=== PATIENT | male | born 1940 | race Asian ===

== ENCOUNTER 2021-04-19 16:35 | Inpatient (IN) | payer MEDICAID ==
--- NOTE | 2021-04-19 17:18 | ERPHSYRPT ---
- History of Present Illness Time Seen by Provider: 04/19/21 16:45 Source: patient Exam Limitations: no limitations Patient Subjective Stated Complaint: HERE FOR HIGH BLOOD SUGAR, HE IS TRAVELING AND FORGOT HES INSULIN, HE STATES HE DOES NOT FELL WELL BUT IS A POOR HISTORIAN Triage Nursing Assessment: PT ALERT, RESP LABORED AT REST, FACE MASK IN PLACE, ABD SOFT, NO EDEMA Physician History: Patient is a 81-year-old male presents to our emergency department via EMS for evaluation of feeling unwell. Patient is a diabetic. Patient is traveling to [place]. Patient states he forgot to take his insulin this morning. Patient states that he drove to [place] for a meal. Patient later began to feel unwell. EMS was notified. Patient was found to have hyperglycemia. No associated chest pain. No nausea or vomiting. No diarrhea. No rash. Symptoms are mild to moderate in intensity. No specific worsening or improving factors. Patient voices no other complaints concerns at this time. Timing/Duration: today Severity: mild Modifying Factors: Improves With: nothing Associated Symptoms: denies symptoms Allergies/Adverse Reactions: No Known Drug Allergies Allergy (Unverified 04/19/21 16:44) Home Medications: Unobtainable 04/19/21 [History] Hx Tetanus, Diphtheria Vaccination/Date Given: No Hx Influenza Vaccination/Date Given: No Hx Pneumococcal Vaccination/Date Given: No Immunizations Up to Date: (UNSURE) Travel Risk - International Travel Have you traveled outside of the country in past 3 weeks: No - Coronavirus Screening Are you exhibiting any of the following symptoms?: No Close contact with a COVID-19 positive Pt in past 14-21 Days: No - Vaccine Status Have you recieved a Covid-19 vaccination: Yes Customer Relations Advisor: [employer] - Vaccination Dates Date of 2cond Vaccination (if applicable): JANUARY - Review of Systems Constitutional: No Symptoms, No Fever, No Chills Eyes: No Symptoms Ears, Nose, & Throat: No Symptoms Respiratory: No Symptoms, No Cough, No Dyspnea Cardiac: No Symptoms, No Chest Pain, No Edema, No Syncope Abdominal/Gastrointestinal: No Symptoms, No Abdominal Pain, No Nausea, No Vomiting, No Diarrhea Genitourinary Symptoms: No Symptoms, No Dysuria Musculoskeletal: No Symptoms, No Back Pain, No Neck Pain Skin: No Symptoms, No Rash Neurological: No Symptoms, No Dizziness, No Focal Weakness, No Sensory Changes Psychological: No Symptoms Endocrine: No Symptoms Hematologic/Lymphatic: No Symptoms Immunological/Allergic: No Symptoms All Other Systems: Reviewed and Negative - Past Medical History Pertinent Past Medical History: Yes Cardiac History: Hypertension Endocrine Medical History: Diabetes Type II - Past Surgical History Past Surgical History: No - Social History Smoking Status: Never smoker Exposure to second hand smoke: No Drug Use: none Patient Lives Alone: Yes - Nursing Vital Signs Nursing Vital Signs: Initial Vital Signs O2 Sat by Pulse Oximetry 98 04/19/21 16:36 Pain Scale Pain Intensity 0 - Physical Exam General Appearance: no apparent distress, alert Eye Exam: PERRL/EOMI, eyes nml inspection Ears, Nose, Throat Exam: normal ENT inspection, TMs normal, pharynx normal, moist mucous membranes Neck Exam: normal inspection, non-tender, supple, full range of motion Respiratory Exam: normal breath sounds, lungs clear, No respiratory distress Cardiovascular Exam: regular rate/rhythm, normal heart sounds, normal peripheral pulses Gastrointestinal/Abdomen Exam: soft, normal bowel sounds, No tenderness, No mass Back Exam: normal inspection, normal range of motion, No CVA tenderness, No vertebral tenderness Extremity Exam: normal inspection, normal range of motion, pelvis stable Neurologic Exam: alert, oriented x 3, cooperative, normal mood/affect, sensation nml, No motor deficits Skin Exam: normal color, warm, dry, No rash Lymphatic Exam: No adenopathy SpO2 Interpretation: normal SpO2: 98 O2 Delivery: Room Air - Course Nursing assessment & vital signs reviewed: Yes EKG Interpreted by Me: RATE (122), Sinus Rhythm, Sinus Tach, NORMAL AXIS, NORMAL INTERVALS - Radiology Exams Chest X-ray Interpretation: Interpreted by me (Left lower lobe consolidation. Cardiomegaly. Intact bony thorax.) - CT Exams Chest CT Interpretation: Tele-radiologist Report (PE evaluation limited by respiration artifact. No obvious central PE. Diffuse bilateral airspace disease. Small hiatal hernia. Cardiomegaly. Multiple hepatic hypodense lesions worrisome for metastasis. 3.5 cm gallstone.) Ordered Tests: Active Orders 24 hr Category Date Time Status Bedrest ROUTINE Activity 04/20/21 01:17 Active Family Services Specialist ROUTINE Care 04/20/21 01:17 Active Family Services Specialist STAT Care 04/19/21 17:12 Completed EKG-ER Only STAT Care 04/19/21 17:11 Completed IV Insertion STAT Care 04/19/21 17:11 Completed Isolation, Initiate & Maintain Q6H Care 04/20/21 01:17 Active Neuro Checks Q4H Care 04/20/21 01:[address] in Observation ROUTINE Care 04/20/21 01:17 Active Pulse Oximetry (ED) STAT Care 04/19/21 17:11 Completed Telemetry q4h Care 04/20/21 01:17 Active Vital Signs Q1H Care 04/20/21 01:17 Active CHEST 1 VIEW (PORTABLE) Stat Exams 04/19/21 17:12 Taken CHEST WITH CONTRAST [CT] Stat Exams 04/19/21 18:40 Taken ABG [ARTERIAL BLOOD GASES] Stat Lab 04/19/21 22:30 Completed BLOOD CULTURE Stat Lab 04/19/21 18:40 Ordered BMP Stat Lab 04/19/21 23:18 Completed CBC W DIFF AM.LAB Lab 04/20/21 04:00 Ordered CBC W DIFF Stat Lab 04/19/21 17:11 Completed CMP AM.LAB Lab 04/20/21 04:00 Ordered CMP Stat Lab 04/19/21 17:11 Completed CULTURE,URINE Stat Lab 04/19/21 19:38 Received INFLUENZA A+B MARGIE Stat Lab 04/19/21 19:30 Completed Manual Differential NC Stat Lab 04/19/21 17:11 Completed POCT GLUCOSE Stat Lab 04/19/21 23:14 Completed TROPONIN Q3H Lab 04/19/21 17:11 Completed TROPONIN Q3H Lab 04/19/21 20:15 Completed TROPONIN Q3H Lab 04/19/21 23:15 Completed TROPONIN Q3H Lab 04/20/21 02:15 Ordered TROPONIN Q3H Lab 04/20/21 05:15 Ordered UA W/RFX UR CULTURE Stat Lab 04/19/21 19:38 Completed Respiratory Therapy Consult ROUTINE RT 04/20/21 01:17 Completed Medication Summary Generic Name Dose Route Start Last Admin Trade Name Freq PRN Reason Stop Dose Admin Albuterol Sulfate 4 puff 04/20/21 01:17 Ventolin Common Canister IH 05/20/21 01:16 Q4H PRN PRN SHORTNESS OF BREATH/WHEEZING Potassium Chloride 20 meq in 100 mls @ 50 mls/hr 04/19/21 19:00 04/19/21 22:12 Potassium Chloride 20 Meq In Water 100ml IV 04/19/21 22:59 50 mls/hr Q2H RICHIE Administration Insulin Human Regular 100 unit 100 mls @ 6.4 mls/hr 04/19/21 18:51 04/19/21 20:04 / Sodium Chloride IV 05/19/21 18:50 0.1 unit/kg/hr .[id number] PRN 6.4 mls/hr DKA/HYPERGLYCEMIA Administration Protocol 0.1 UNIT/KG/HR Sodium Chloride 1,000 mls @ 0 mls/hr 04/20/21 01:17 04/20/21 02:51 Sodium Chloride 0.9% 1000 Ml IV 05/20/21 01:16 250 mls/hr .Q0M RICHIE Administration KVO Sodium Chloride 1,000 mls @ 250 mls/hr 04/20/21 02:00 04/20/21 03:04 Sodium Chloride 0.9% 1000 Ml IV 05/20/21 01:59 Not Given .Q4H RICHIE Sodium Chloride 1,000 mls @ 150 mls/hr 04/20/21 04:00 Sodium Chloride 0.9% 1000 Ml IV 05/20/21 03:59 .[id number] RICHIE Morphine Sulfate 4 mg 04/20/21 01:17 Morphine Sulfate 4 Mg Inj IV 04/25/21 01:16 Q4H PRN PRN PAIN Ondansetron HCl 4 mg 04/20/21 01:17 Zofran 4 Mg/2 Ml Vial IV 05/20/21 01:16 Q6H PRN PRN NAUSEA/VOMITING Discontinued Medications Generic Name Dose Route Start Last Admin Trade Name Freq PRN Reason Stop Dose Admin Aspirin 324 mg 04/19/21 18:36 04/19/21 18:42 Baby Aspirin 81 Mg Chew PO 04/19/21 18:37 324 mg STAT ONE Administration Aspirin Confirm 04/19/21 18:40 Baby Aspirin 81 Mg Chew Administered 04/19/21 18:41 Dose 324 mg .ROUTE .STK-MED ONE Dexamethasone Sodium Phosphate 6 mg 04/19/21 21:59 04/19/21 23:52 Decadron 10mg Inj. IV 04/19/21 22:00 6 mg STAT ONE Administration Dexamethasone Sodium Phosphate Confirm 04/19/21 23:50 Decadron 10mg Inj. Administered 04/19/21 23:51 Dose 10 mg .ROUTE .STK-MED ONE Vancomycin HCl 2 gm in 400 mls @ 133.333 mls/hr 04/19/21 18:41 04/20/21 01:11 Vancomycin 2 Gram/400 Ml Bag IV 04/19/21 21:40 Infused STAT ONE Infusion Piperacillin Sod/Tazobactam 100 mls @ 200 mls/hr 04/19/21 18:41 04/19/21 18:46 Sod 3.375 gm/ Sodium Chloride IV 04/19/21 19:10 200 mls/hr STAT ONE Administration Sodium Chloride Confirm 04/19/21 18:45 Sodium Chloride 100ml Mini-Bag Plus Administered 04/19/21 18:46 Dose 100 mls @ ud IV .STK-MED ONE Vancomycin HCl Confirm 04/19/21 18:53 Vancomycin 2 Gram/400 Ml Bag Administered 04/19/21 18:54 Dose 2 gm in 400 mls @ ud IV .STK-MED ONE Sodium Chloride Confirm 04/19/21 20:00 Sodium Chloride 0.9% 100 Ml Bag Administered 04/19/21 20:01 Dose 100 mls @ ud .ROUTE .STK-MED ONE Insulin Human Regular Confirm 04/19/21 19:59 Humulin R Administered 04/19/21 20:00 Dose 1 unit .ROUTE .STK-MED ONE Nitroglycerin 1 gm 04/19/21 18:36 04/19/21 18:43 Nitro-Bid 2% Ud Packets TOP 04/19/21 18:37 1 gm STAT ONE Administration Nitroglycerin Confirm 04/19/21 18:41 Nitro-Bid 2% Ud Packets Administered 04/19/21 18:42 Dose 1 gm .ROUTE .STK-MED ONE Piperacillin Sod/Tazobactam Sod Confirm 04/19/21 18:44 Zosyn 3.375 Gm Vial Administered 04/19/21 18:45 Dose 3.375 gm IV .STK-MED ONE Lab/Rad Data: Laboratory Result Diagrams 04/19/21 17:11 04/20/21 00:15 Laboratory Results 04/20/21 04/20/21 04/19/21 Range/Units 01:08 00:15 23:15 WBC (4.0-10.5) K/mm3 RBC (4.1-5.6) M/mm3 Hgb (12.5-18.0) gm/dl Hct (42-50) % MCV (78-100) fl MCH (26-32) pg MCHC (32-36) g/dl RDW (11.5-14.0) % Plt Count (150-450) K/mm3 MPV (7.5-11.0) fl Segmented Neutrophils (36.-66.) % Band Neutrophils (0.0-2.0) % Lymphocytes (Manual) (24-44) % Monocytes (Manual) (0.0-12.0) % Platelet Estimate (NORMAL) RBC Morphology Poikilocytosis Anisocytosis Puncture Site pCO2 (35-45) mmHg pO2 (75-100) mmHg Base Excess (-2.0-2.0) O2 Saturation (94-100) g/dF ABG pH (7.35-7.45) ABG HCO3 (22-28) ABG O2 Sat (Measured) (95-100) % Wilfrido Test A-a Gradient a/A Ratio Hemoglobin Carboxyhemoglobin (0.0-6.9) % THgb Methemoglobin (1.4-1.5) % Temperature C POC O2 Flow Rate % Sodium 135 L (137-145) mmol/L Potassium 3.9 (3.5-5.1) mmol/L Chloride 106 (98-107) mmol/L Carbon Dioxide 20 L (22-30) mmol/L Anion Gap 12.6 (5-15) MEQ/L BUN 25 H (9-20) mg/dL Creatinine 0.87 (0.66-1.25) mg/dL Estimated GFR > 60.0 ML/MIN Glucose 474 H (74-106) mg/dL POC Glucometer 380 H (74 to 106) mg/dL Calcium 8.9 (8.4-10.2) mg/dL Total Bilirubin (0.2-1.3) mg/dL AST (17-59) U/L ALT (0-50) U/L Alkaline Phosphatase (38-126) U/L Troponin I 0.065 H* (0.000-0.034) ng/mL Serum Total Protein (6.3-8.2) g/dL Albumin (3.5-5.0) g/dL Urine Color (YELLOW) Urine Appearance (CLEAR) Urine pH (5-6) Ur Specific [place] (1.005-1.025) Urine Protein (Negative) Urine Ketones (NEGATIVE) Urine Blood (0-5) Nguyễn/ul Urine Nitrite (NEGATIVE) Urine Bilirubin (NEGATIVE) Urine Urobilinogen (0-1) mg/dL Ur Leukocyte Esterase (NEGATIVE) Urine WBC (Auto) (0-5) /HPF Urine RBC (Auto) (0-2) /HPF U Epithel Cells (Auto) (FEW) /HPF Urine Bacteria (Auto) (NEGATIVE) /HPF Urine Mucus (Auto) (NEGATIVE) /HPF Urine Culture Reflexed (NO) Urine Glucose (NEGATIVE) mg/dL Influenza Type A Ag (NEGATIVE) Influenza Type B Ag (NEGATIVE) SARS-CoV-2 (PCR) (NEGATIVE) 04/19/21 04/19/21 04/19/21 Range/Units 23:14 22:30 20:30 WBC (4.0-10.5) K/mm3 RBC (4.1-5.6) M/mm3 Hgb (12.5-18.0) gm/dl Hct (42-50) % MCV (78-100) fl MCH (26-32) pg MCHC (32-36) g/dl RDW (11.5-14.0) % Plt Count (150-450) K/mm3 MPV (7.5-11.0) fl Segmented Neutrophils (36.-66.) % Band Neutrophils (0.0-2.0) % Lymphocytes (Manual) (24-44) % Monocytes (Manual) (0.0-12.0) % Platelet Estimate (NORMAL) RBC Morphology Poikilocytosis Anisocytosis Puncture Site RIGHT RADIAL pCO2 27 L (35-45) mmHg pO2 55 L (75-100) mmHg Base Excess -4.4 L (-2.0-2.0) O2 Saturation 87.5 L (94-100) g/dF ABG pH 7.44 (7.35-7.45) ABG HCO3 18.3 L (22-28) ABG O2 Sat (Measured) 89.2 L (95-100) % Wilfrido Test YES A-a Gradient 225 a/A Ratio 0.20 Hemoglobin 16.1 Carboxyhemoglobin 1.4 (0.0-6.9) % THgb Methemoglobin 0.5 L (1.4-1.5) % Temperature 37.0 C POC O2 Flow Rate 21 % Sodium (137-145) mmol/L Potassium 4.0 (3.5-5.1) mmol/L Chloride (98-107) mmol/L Carbon Dioxide (22-30) mmol/L Anion Gap (5-15) MEQ/L BUN (9-20) mg/dL Creatinine (0.66-1.25) mg/dL Estimated GFR ML/MIN Glucose (74-106) mg/dL POC Glucometer 490 H (74 to 106) mg/dL Calcium (8.4-10.2) mg/dL Total Bilirubin (0.2-1.3) mg/dL AST (17-59) U/L ALT (0-50) U/L Alkaline Phosphatase (38-126) U/L Troponin I (0.000-0.034) ng/mL Serum Total Protein (6.3-8.2) g/dL Albumin (3.5-5.0) g/dL Urine Color (YELLOW) Urine Appearance (CLEAR) Urine pH (5-6) Ur Specific [place] (1.005-1.025) Urine Protein (Negative) Urine Ketones (NEGATIVE) Urine Blood (0-5) Nguyễn/ul Urine Nitrite (NEGATIVE) Urine Bilirubin (NEGATIVE) Urine Urobilinogen (0-1) mg/dL Ur Leukocyte Esterase (NEGATIVE) Urine WBC (Auto) (0-5) /HPF Urine RBC (Auto) (0-2) /HPF U Epithel Cells (Auto) (FEW) /HPF Urine Bacteria (Auto) (NEGATIVE) /HPF Urine Mucus (Auto) (NEGATIVE) /HPF Urine Culture Reflexed (NO) Urine Glucose (NEGATIVE) mg/dL Influenza Type A Ag (NEGATIVE) Influenza Type B Ag (NEGATIVE) SARS-CoV-2 (PCR) POSITIVE A (NEGATIVE) 04/19/21 04/19/21 04/19/21 Range/Units 20:15 19:38 19:30 WBC (4.0-10.5) K/mm3 RBC (4.1-5.6) M/mm3 Hgb (12.5-18.0) gm/dl Hct (42-50) % MCV (78-100) fl MCH (26-32) pg MCHC (32-36) g/dl RDW (11.5-14.0) % Plt Count (150-450) K/mm3 MPV (7.5-11.0) fl Segmented Neutrophils (36.-66.) % Band Neutrophils (0.0-2.0) % Lymphocytes (Manual) (24-44) % Monocytes (Manual) (0.0-12.0) % Platelet Estimate (NORMAL) RBC Morphology Poikilocytosis Anisocytosis Puncture Site pCO2 (35-45) mmHg pO2 (75-100) mmHg Base Excess (-2.0-2.0) O2 Saturation (94-100) g/dF ABG pH (7.35-7.45) ABG HCO3 (22-28) ABG O2 Sat (Measured) (95-100) % Wilfrido Test A-a Gradient a/A Ratio Hemoglobin Carboxyhemoglobin (0.0-6.9) % THgb Methemoglobin (1.4-1.5) % Temperature C POC O2 Flow Rate % Sodium (137-145) mmol/L Potassium (3.5-5.1) mmol/L Chloride (98-107) mmol/L Carbon Dioxide (22-30) mmol/L Anion Gap (5-15) MEQ/L BUN (9-20) mg/dL Creatinine (0.66-1.25) mg/dL Estimated GFR ML/MIN Glucose (74-106) mg/dL POC Glucometer (74 to 106) mg/dL Calcium (8.4-10.2) mg/dL Total Bilirubin (0.2-1.3) mg/dL AST (17-59) U/L ALT (0-50) U/L Alkaline Phosphatase (38-126) U/L Troponin I 0.066 H* (0.000-0.034) ng/mL Serum Total Protein (6.3-8.2) g/dL Albumin (3.5-5.0) g/dL Urine Color YELLOW (YELLOW) Urine Appearance CLEAR (CLEAR) Urine pH 6.0 (5-6) Ur Specific [place] 1.026 (1.005-1.025) Urine Protein 30 (Negative) Urine Ketones SMALL (NEGATIVE) Urine Blood SMALL (0-5) Nguyễn/ul Urine Nitrite NEGATIVE (NEGATIVE) Urine Bilirubin NEGATIVE (NEGATIVE) Urine Urobilinogen NEGATIVE (0-1) mg/dL Ur Leukocyte Esterase NEGATIVE (NEGATIVE) Urine WBC (Auto) NONE (0-5) /HPF Urine RBC (Auto) NONE (0-2) /HPF U Epithel Cells (Auto) NONE (FEW) /HPF Urine Bacteria (Auto) NONE (NEGATIVE) /HPF Urine Mucus (Auto) SLIGHT (NEGATIVE) /HPF Urine Culture Reflexed YES (NO) Urine Glucose >=500 (NEGATIVE) mg/dL Influenza Type A Ag NEGATIVE (NEGATIVE) Influenza Type B Ag NEGATIVE (NEGATIVE) SARS-CoV-2 (PCR) (NEGATIVE) 04/19/21 04/19/21 04/19/21 Range/Units 17:11 17:11 17:11 WBC 4.4 (4.0-10.5) K/mm3 RBC 3.68 L (4.1-5.6) M/mm3 Hgb 12.9 (12.5-18.0) gm/dl Hct 38.5 L (42-50) % MCV 104.6 H (78-100) fl MCH 35.1 H (26-32) pg MCHC 33.5 (32-36) g/dl RDW 13.7 (11.5-14.0) % Plt Count 91 L (150-450) K/mm3 MPV 12.1 H (7.5-11.0) fl Segmented Neutrophils 76 H (36.-66.) % Band Neutrophils 3 H (0.0-2.0) % Lymphocytes (Manual) 19 L (24-44) % Monocytes (Manual) 2 (0.0-12.0) % Platelet Estimate NORMAL (NORMAL) RBC Morphology ABNORMAL Poikilocytosis 1+ Anisocytosis 1+ Puncture Site pCO2 (35-45) mmHg pO2 (75-100) mmHg Base Excess (-2.0-2.0) O2 Saturation (94-100) g/dF ABG pH (7.35-7.45) ABG HCO3 (22-28) ABG O2 Sat (Measured) (95-100) % Wilfrido Test A-a Gradient a/A Ratio Hemoglobin Carboxyhemoglobin (0.0-6.9) % THgb Methemoglobin (1.4-1.5) % Temperature C POC O2 Flow Rate % Sodium 130 L (137-145) mmol/L Potassium 3.8 (3.5-5.1) mmol/L Chloride 95 L (98-107) mmol/L Carbon Dioxide 13 L* (22-30) mmol/L Anion Gap 24.9 H (5-15) MEQ/L BUN 25 H (9-20) mg/dL Creatinine 1.06 (0.66-1.25) mg/dL Estimated GFR > 60.0 ML/MIN Glucose 679 H* (74-106) mg/dL POC Glucometer (74 to 106) mg/dL Calcium 9.2 (8.4-10.2) mg/dL Total Bilirubin 1.80 H (0.2-1.3) mg/dL AST 108 H (17-59) U/L ALT 50 (0-50) U/L Alkaline Phosphatase 201 H (38-126) U/L Troponin I 0.054 H* (0.000-0.034) ng/mL Serum Total Protein 7.3 (6.3-8.2) g/dL Albumin 3.7 (3.5-5.0) g/dL Urine Color (YELLOW) Urine Appearance (CLEAR) Urine pH (5-6) Ur Specific [place] (1.005-1.025) Urine Protein (Negative) Urine Ketones (NEGATIVE) Urine Blood (0-5) Nguyễn/ul Urine Nitrite (NEGATIVE) Urine Bilirubin (NEGATIVE) Urine Urobilinogen (0-1) mg/dL Ur Leukocyte Esterase (NEGATIVE) Urine WBC (Auto) (0-5) /HPF Urine RBC (Auto) (0-2) /HPF U Epithel Cells (Auto) (FEW) /HPF Urine Bacteria (Auto) (NEGATIVE) /HPF Urine Mucus (Auto) (NEGATIVE) /HPF Urine Culture Reflexed (NO) Urine Glucose (NEGATIVE) mg/dL Influenza Type A Ag (NEGATIVE) Influenza Type B Ag (NEGATIVE) SARS-CoV-2 (PCR) (NEGATIVE) - Progress Progress: improved Progress Note: Patient reassessed. DKA improving. Patient Covid positive. CAT scan incidentally identifies possible metastasis. This will require further investigation as an as an inpatient and outpatient. Pneumonia observed on x- ray. Antibiotics infused. Patient admitted to Dr. Munson. Patient will require admission for further evaluation and treatment. Plan of care discussed with patient. He agrees to admission at [facility] for further evaluation and treatment. Portions of this note were created with voice recognition technology. There may be grammatical, spelling, punctuation or sound alike errors 04/20/21 03:52 Counseled pt/family regarding: lab results, diagnosis, rad results - Departure Departure Disposition: Observation Clinical Impression: Elevated troponin, Thrombocytopenia, Hyponatremia, Metabolic acidosis, DKA (diabetic ketoacidosis), Sepsis, Leukopenia, Gallstones, Metastatic cancer, COVID-19, Pneumonia Condition: Stable Critical Care Time: No
[2021-04-19 17:24] LABS: Hematocrit 38.5 % (42-50); Hemoglobin 12.9 gm/dl (12.5-18.0); Mean Cell Volume 104.6 fl (78-100); Mean Corpuscular Hemoglobin 35.1 pg (26-32); Mean Corpuscular Hgb Concent. 33.5 g/dl (32-36); Mean Platelet Volume 12.1 fl (7.5-11.0); Platelet Count 91 K/mm3 (150-450); Red Blood Count 3.68 M/mm3 (4.1-5.6); Red Cell Distribution Width 13.7 % (11.5-14.0); White Blood Count 4.4 K/mm3 (4.0-10.5)
[2021-04-19 17:28] LABS: ALBUMIN 3.7 g/dL (3.5-5.0); ALKALINE PHOSPHATASE 201 U/L (38-126); ANION GAP 24.9 MEQ/L (5-15); BLOOD UREA NITROGEN 25 mg/dL (9-20); CHLORIDE 95 mmol/L (98-107); Calcium 9.2 mg/dL (8.4-10.2); Creatinine 1 1.06 mg/dL (0.66-1.25); EST GLOMERULAR FILTRATION RATE > 60.0 ML/MIN; Potassium 3.8 mmol/L (3.5-5.1); SGOT/AST 108 U/L (17-59); SODIUM 130 mmol/L (137-145); Total Protein 7.3 g/dL (6.3-8.2)
[2021-04-19 17:34] LABS: SGPT/ALT 50 U/L (0-50)
[2021-04-19 17:43] LABS: Carbon Dioxide 13 mmol/L (22-30); Glucose 679 mg/dL (74-106)
[2021-04-19] MEDS ORDERED: BABY ASPIRIN 81 MG CHEW PO ONE (18:36)
[2021-04-19] MEDS ORDERED: NITRO-BID 2% UD PACKETS TOP ONE (18:36)
[2021-04-19] MEDS ORDERED: BABY ASPIRIN 81 MG CHEW ONE (18:40)
[2021-04-19] MEDS ORDERED: Zosyn 3.375 GM Vial 3.375 GM in Sodium Chloride 100ML MINI-BAG PLUS 100 ML IV ONE (18:41)
[2021-04-19] MEDS ORDERED: NITRO-BID 2% UD PACKETS ONE (18:41)
[2021-04-19] MEDS ORDERED: VANCOMYCIN 2 GRAM/400 ML BAG 2 GM/400 ML PIGGYBACK IV ONE ×2 (18:41→18:53)
[2021-04-19] MEDS ORDERED: Zosyn 3.375 GM Vial IV ONE (18:44)
[2021-04-19] MEDS ORDERED: Sodium Chloride 100ML MINI-BAG PLUS 100 ML IV ONE (18:45)
[2021-04-19] MEDS ORDERED: HUMULIN R 100 UNIT in Sodium Chloride 0.9% 100 ML BAG 100 ML IV PRN (18:51)
[2021-04-19 19:53] LABS: Appearance CLEAR (CLEAR); Bilirubin NEGATIVE (NEGATIVE); Blood SMALL Ery/ul (0-5); Glucose >=500 mg/dL (NEGATIVE); Ketones SMALL (NEGATIVE); Leukocyte Esterase NEGATIVE (NEGATIVE); Mucus SLIGHT /HPF (NEGATIVE); Nitrite NEGATIVE (NEGATIVE); Protein,Urine Dip 30 (Negative); Specific Gravity 1.026 (1.005-1.025); Urobilinogen NEGATIVE mg/dL (0-1)
[2021-04-19] MEDS ORDERED: HUMULIN R ONE (19:59)
[2021-04-19] MEDS ORDERED: Sodium Chloride 0.9% 100 ML BAG 100 ML ONE (20:00)
[2021-04-19] MEDS: POTASSIUM CHLORIDE 20 mEq IN WATER 100ML 20 MEQ/100 ML BAG IV SCH ×2 (20:13→22:12)
[2021-04-19 20:41] LABS: INFLUENZA A NEGATIVE (NEGATIVE); INFLUENZA B NEGATIVE (NEGATIVE)
[2021-04-19 21:32] LABS: BAND 3 % (0.0-2.0); Lymphocytes 19 % (24-44); Monocyte 2 % (0.0-12.0); Neutrophils 76 % (36.-66.); Total Cells Counted 100
[2021-04-19 21:33] LABS: ANISOCYTOSIS 1+; Platelet Estimate NORMAL (NORMAL); Poikilocytosis 1+
[2021-04-19] MEDS ORDERED: DECADRON 10MG INJ. IV ONE (21:59)
[2021-04-19 22:33] LABS: A-aADO2 225; ABG HEMOGLOBIN 16.1; ABG SITE RIGHT RADIAL; ALLEN TEST OK? YES; ARTERIAL BLD GAS O2 SATURATION 89.2 % (95-100); ARTERIAL BLOOD GAS BASE EXCESS -4.4 (-2.0-2.0); ARTERIAL BLOOD GAS PCO2 27 mmHg (35-45); ARTERIAL BLOOD GAS PO2 55 mmHg (75-100); ARTERIAL BLOOD GAS pH 7.44 (7.35-7.45); CARBOXYHEMOGLOBIN 1.4 % THgb (0.0-6.9); HCO3- 18.3 (22-28); HGB O2 SAT 87.5 g/dF (94-100); Methhemoglobin 0.5 % (1.4-1.5)
[2021-04-19 22:37] LABS: ARTERIAL BLOOD GAS FIO2 21 %
[2021-04-19] MEDS ORDERED: DECADRON 10MG INJ. ONE (23:50)
[2021-04-20 00:29] LABS: ANION GAP 12.6 MEQ/L (5-15); BLOOD UREA NITROGEN 25 mg/dL (9-20); CHLORIDE 106 mmol/L (98-107); Calcium 8.9 mg/dL (8.4-10.2); Carbon Dioxide 20 mmol/L (22-30); Creatinine 1 0.87 mg/dL (0.66-1.25); EST GLOMERULAR FILTRATION RATE > 60.0 ML/MIN; Glucose 474 mg/dL (74-106); Potassium 3.9 mmol/L (3.5-5.1); SODIUM 135 mmol/L (137-145)
[2021-04-20] MEDS ORDERED: Sodium Chloride 0.9% 1000 ML 1,000 ML IV SCH (01:17)
[2021-04-20] MEDS ORDERED: Zofran 4 MG/2 ML VIAL IV PRN (01:17)
[2021-04-20] MEDS ORDERED: MORPHINE SULFATE 4 MG INJ IV PRN (01:17)
[2021-04-20] MEDS ORDERED: VENTOLIN COMMON CANISTER IH PRN (01:17)
[2021-04-20] MEDS: Sodium Chloride 0.9% 1000 ML 1,000 ML IV SCH ×4 (03:04→11:10)
[2021-04-20 03:42] LABS: ALBUMIN 3.4 g/dL (3.5-5.0); ALKALINE PHOSPHATASE 220 U/L (38-126); ANION GAP 11.8 MEQ/L (5-15); BLOOD UREA NITROGEN 24 mg/dL (9-20); CHLORIDE 109 mmol/L (98-107); Calcium 9.3 mg/dL (8.4-10.2); Carbon Dioxide 21 mmol/L (22-30); Creatinine 1 0.85 mg/dL (0.66-1.25); EST GLOMERULAR FILTRATION RATE > 60.0 ML/MIN; Glucose 287 mg/dL (74-106); Potassium 3.5 mmol/L (3.5-5.1); SGOT/AST 115 U/L (17-59); SGPT/ALT 53 U/L (0-50); SODIUM 138 mmol/L (137-145); Total Protein 7.1 g/dL (6.3-8.2)
[2021-04-20 03:49] LABS: Hematocrit 33.7 % (42-50); Hemoglobin 11.6 gm/dl (12.5-18.0); Mean Cell Volume 101.8 fl (78-100); Mean Corpuscular Hgb Concent. 34.4 g/dl (32-36); Mean Platelet Volume 11.9 fl (7.5-11.0); Platelet Count 98 K/mm3 (150-450); Red Blood Count 3.31 M/mm3 (4.1-5.6); Red Cell Distribution Width 13.4 % (11.5-14.0); White Blood Count 4.1 K/mm3 (4.0-10.5)
[2021-04-20 08:13] LABS: ANION GAP 10.2 MEQ/L (5-15); BLOOD UREA NITROGEN 23 mg/dL (9-20); CHLORIDE 113 mmol/L (98-107); Carbon Dioxide 22 mmol/L (22-30); EST GLOMERULAR FILTRATION RATE > 60.0 ML/MIN; Glucose 115 mg/dL (74-106); Potassium 3.5 mmol/L (3.5-5.1); SODIUM 142 mmol/L (137-145)
--- NOTE | 2021-04-20 08:49 | XRAY ---
Indication: Hypoxia, tachycardia, and short of breath. Multiple contiguous images obtained through the chest using 80 cc Isovue 370 contrast and PE protocol. Comparison: None There is good opacification of the pulmonary arteries. However diffuse respiration artifact limits evaluation for pulmonary embolus. No obvious central pulmonary embolus. Heart is enlarged with small pericardial effusion. Aorta mildly arteriosclerotic without aneurysm/dissection. Small right hilar calcified nodes. No pathologic mediastinal/hilar lymphadenopathy. Small hiatal hernia. Lungs demonstrates moderate diffuse bilateral peripheral airspace disease greatest in both lower lobes. No effusion or pneumothorax. Bony thorax demonstrates osteopenia and flowing osteophytes throughout the spine. Limited upper abdomen demonstrates multiple hepatic hypodense lesions worrisome for metastasis. Also 3.5 cm gallstone. Impression: 1. Pulmonary embolus evaluation limited by respiration artifact. No obvious central pulmonary embolus. 2. Diffuse bilateral airspace disease. Commonly reported imaging features of Covid 19 pneumonia are present. Other processes such as influenza pneumonia and organizing pneumonia, as can be seen with drug toxicity and connective tissue disease, and causes similar imaging pattern. 3. Multiple hepatic lesions worrisome for metastasis. 4. Incidental cardiomegaly with pericardial effusion, small hiatal hernia, and large gallstone.
--- NOTE | 2021-04-20 08:49 | XRAY ---
Indication: Near syncope. Comparison: None Portable chest demonstrates diffuse bilateral airspace disease greatest in both lower lobes without consolidation/large effusion. Heart borderline enlarged. Bony thorax intact with mild osteopenia and degenerative changes.
[2021-04-20] MEDS ORDERED: REMDESIVIR 200 MG in Sodium Chloride 0.9% 250 ML 250 ML IV ONE (10:00)
[2021-04-20] MEDS: LASIX 20 MG PO SCH (10:44)
[2021-04-20] MEDS: DECADRON 10MG INJ. IV SCH (10:44)
[2021-04-20] MEDS: ENOXAPARIN SODIUM SQ SCH (10:45)
[2021-04-20] MEDS: HUMALOG SQ PRN ×3 (12:04→21:52)
[2021-04-20 14:35] LABS: Lymphocytes 14 % (24-44); Monocyte 1 % (0.0-12.0); Neutrophils 85 % (36.-66.); Platelet Estimate DECREASED (NORMAL); Total Cells Counted 100
[2021-04-21 06:37] LABS: Hematocrit 32.9 % (42-50); Hemoglobin 11.2 gm/dl (12.5-18.0); Mean Cell Volume 103.1 fl (78-100); Mean Corpuscular Hemoglobin 35.1 pg (26-32); Mean Platelet Volume 11.8 fl (7.5-11.0); Platelet Count 99 K/mm3 (150-450); Red Blood Count 3.19 M/mm3 (4.1-5.6); Red Cell Distribution Width 13.7 % (11.5-14.0); White Blood Count 5.4 K/mm3 (4.0-10.5)
[2021-04-21 07:48] LABS: ALKALINE PHOSPHATASE 221 U/L (38-126); ANION GAP 11.4 MEQ/L (5-15); BLOOD UREA NITROGEN 31 mg/dL (9-20); CHLORIDE 110 mmol/L (98-107); Calcium 8.7 mg/dL (8.4-10.2); Carbon Dioxide 20 mmol/L (22-30); Creatinine 1 0.74 mg/dL (0.66-1.25); EST GLOMERULAR FILTRATION RATE > 60.0 ML/MIN; Glucose 237 mg/dL (74-106); Potassium 3.8 mmol/L (3.5-5.1); SGOT/AST 94 U/L (17-59); SGPT/ALT 57 U/L (0-50); SODIUM 137 mmol/L (137-145); Total Protein 6.4 g/dL (6.3-8.2)
[2021-04-21 08:00] LABS: TROPONIN 0.035 ng/mL (0.000-0.034)
[2021-04-21 08:05] LABS: ATYPICAL LYMPHS 1 %; BAND 8 % (0.0-2.0); Lymphocytes 8 % (24-44); Monocyte 3 % (0.0-12.0); Neutrophils 80 % (36.-66.); Total Cells Counted 100
[2021-04-21 08:06] LABS: ANISOCYTOSIS 1+; Macrocytosis 1+; Platelet Estimate DECREASED (NORMAL)
[2021-04-21 08:07] LABS: Absolute Neutrophil Ct (ANC) 4.73 (1.4-6.9)
[2021-04-21] MEDS: HUMALOG SQ PRN ×4 (08:26→21:01)
[2021-04-21] MEDS: DECADRON 10MG INJ. IV SCH (09:53)
[2021-04-21] MEDS: ENOXAPARIN SODIUM SQ SCH (09:54)
[2021-04-21] MEDS: LASIX 20 MG PO SCH (09:54)
[2021-04-21] MEDS: Sodium Chloride 0.9% 1000 ML 1,000 ML IV SCH (09:56)
[2021-04-21] MEDS: REMDESIVIR 100 MG in Sodium Chloride 0.9% 100 ML BAG 100 ML IV SCH (09:57)
[2021-04-22] MEDS: Sodium Chloride 0.9% 1000 ML 1,000 ML IV SCH (08:00)
[2021-04-22] MEDS: HUMALOG SQ PRN ×4 (08:08→21:40)
[2021-04-22] MEDS: ENOXAPARIN SODIUM SQ SCH (09:48)
[2021-04-22] MEDS: DECADRON 10MG INJ. IV SCH (09:48)
[2021-04-22] MEDS: LASIX 20 MG PO SCH (09:49)
[2021-04-22] MEDS: REMDESIVIR 100 MG in Sodium Chloride 0.9% 100 ML BAG 100 ML IV SCH (09:49)
[2021-04-23] MEDS: Sodium Chloride 0.9% 1000 ML 1,000 ML IV SCH (02:23)
[2021-04-23 06:01] LABS: Hematocrit 34.3 % (42-50); Hemoglobin 11.5 gm/dl (12.5-18.0); Mean Cell Volume 104.3 fl (78-100); Mean Corpuscular Hgb Concent. 33.5 g/dl (32-36); Mean Platelet Volume 11.7 fl (7.5-11.0); Platelet Count 85 K/mm3 (150-450); Red Blood Count 3.29 M/mm3 (4.1-5.6); Red Cell Distribution Width 13.9 % (11.5-14.0); White Blood Count 4.5 K/mm3 (4.0-10.5)
[2021-04-23 06:53] LABS: ALBUMIN 2.6 g/dL (3.5-5.0); ALKALINE PHOSPHATASE 263 U/L (38-126); ANION GAP 11.2 MEQ/L (5-15); BLOOD UREA NITROGEN 27 mg/dL (9-20); CHLORIDE 106 mmol/L (98-107); Calcium 8.2 mg/dL (8.4-10.2); Carbon Dioxide 22 mmol/L (22-30); Creatinine 1 0.66 mg/dL (0.66-1.25); EST GLOMERULAR FILTRATION RATE > 60.0 ML/MIN; Glucose 245 mg/dL (74-106); Potassium 3.6 mmol/L (3.5-5.1); SGOT/AST 66 U/L (17-59); SGPT/ALT 47 U/L (0-50); SODIUM 136 mmol/L (137-145); Total Protein 5.9 g/dL (6.3-8.2)
[2021-04-23 07:08] LABS: INR 1.16 (0.8-3.0); PROTIME 13.7 SECONDS (9.4-12.5)
[2021-04-23 07:26] LABS: Slide Review YES
[2021-04-23] MEDS: HUMALOG SQ PRN ×3 (08:16→21:23)
[2021-04-23] MEDS: DECADRON 10MG INJ. IV SCH (09:52)
[2021-04-23] MEDS: LASIX 20 MG PO SCH (09:52)
[2021-04-23] MEDS: REMDESIVIR 100 MG in Sodium Chloride 0.9% 100 ML BAG 100 ML IV SCH (09:52)
[2021-04-23] MEDS: ENOXAPARIN SODIUM SQ SCH (09:52)
[2021-04-23] MEDS: OLUMIANT PO SCH (11:23)
[2021-04-23] MEDS ORDERED: Zestril 20 MG PO ONE (13:15)
[2021-04-24] MEDS: Sodium Chloride 0.9% 1000 ML 1,000 ML IV SCH (03:43)
[2021-04-24 06:37] LABS: Hematocrit 34.7 % (42-50); Hemoglobin 11.6 gm/dl (12.5-18.0); Mean Cell Volume 104.2 fl (78-100); Mean Corpuscular Hemoglobin 34.8 pg (26-32); Mean Corpuscular Hgb Concent. 33.4 g/dl (32-36); Mean Platelet Volume 11.2 fl (7.5-11.0); Platelet Count 91 K/mm3 (150-450); Red Blood Count 3.33 M/mm3 (4.1-5.6); Red Cell Distribution Width 14.5 % (11.5-14.0); White Blood Count 4.4 K/mm3 (4.0-10.5)
[2021-04-24 06:50] LABS: ALBUMIN 2.5 g/dL (3.5-5.0); ALKALINE PHOSPHATASE 207 U/L (38-126); ANION GAP 10.3 MEQ/L (5-15); BLOOD UREA NITROGEN 27 mg/dL (9-20); CHLORIDE 105 mmol/L (98-107); Calcium 7.9 mg/dL (8.4-10.2); Carbon Dioxide 25 mmol/L (22-30); Creatinine 1 0.65 mg/dL (0.66-1.25); EST GLOMERULAR FILTRATION RATE > 60.0 ML/MIN; Glucose 136 mg/dL (74-106); Potassium 3.4 mmol/L (3.5-5.1); SGOT/AST 67 U/L (17-59); SGPT/ALT 45 U/L (0-50); SODIUM 137 mmol/L (137-145); Total Protein 5.7 g/dL (6.3-8.2)
[2021-04-24 06:54] LABS: INR 1.22 (0.8-3.0); PROTIME 14.4 SECONDS (9.4-12.5)
[2021-04-24 07:10] LABS: Slide Review YES
--- NOTE | 2021-04-24 10:35 | XRAY ---
Indication: Positive Covid 19. Comparison: April 19, 2021. Portable chest demonstrates mild clearing of diffuse bilateral airspace disease with mild bibasilar residual, left greater than right. Heart not enlarged. No new cardiopulmonary abnormalities.
[2021-04-24] MEDS: OLUMIANT PO SCH (10:38)
[2021-04-24] MEDS: LASIX 20 MG PO SCH (10:38)
[2021-04-24] MEDS: Zestril 20 MG PO SCH (10:38)
[2021-04-24] MEDS: REMDESIVIR 100 MG in Sodium Chloride 0.9% 100 ML BAG 100 ML IV SCH (10:39)
[2021-04-24] MEDS: DECADRON 10MG INJ. IV SCH (10:39)
[2021-04-24] MEDS: ENOXAPARIN SODIUM SQ SCH (10:39)
[2021-04-24] MEDS: HUMALOG SQ PRN ×3 (12:02→21:11)
[2021-04-25 06:38] LABS: Hematocrit 33.6 % (42-50); Hemoglobin 11.2 gm/dl (12.5-18.0); Mean Corpuscular Hgb Concent. 33.3 g/dl (32-36); Mean Platelet Volume 11.4 fl (7.5-11.0); Platelet Count 89 K/mm3 (150-450); Red Cell Distribution Width 14.7 % (11.5-14.0); White Blood Count 3.9 K/mm3 (4.0-10.5)
[2021-04-25 06:54] LABS: INR 1.19 (0.8-3.0)
[2021-04-25 07:12] LABS: ALBUMIN 2.5 g/dL (3.5-5.0); ALKALINE PHOSPHATASE 225 U/L (38-126); ANION GAP 8.1 MEQ/L (5-15); BLOOD UREA NITROGEN 26 mg/dL (9-20); CHLORIDE 103 mmol/L (98-107); Carbon Dioxide 26 mmol/L (22-30); Creatinine 1 0.67 mg/dL (0.66-1.25); EST GLOMERULAR FILTRATION RATE > 60.0 ML/MIN; Glucose 319 mg/dL (74-106); Potassium 3.7 mmol/L (3.5-5.1); SGOT/AST 84 U/L (17-59); SGPT/ALT 55 U/L (0-50); SODIUM 133 mmol/L (137-145); Total Protein 5.6 g/dL (6.3-8.2)
[2021-04-25] MEDS: Sodium Chloride 0.9% 1000 ML 1,000 ML IV SCH (07:31)
[2021-04-25] MEDS: HUMALOG SQ PRN ×4 (07:35→21:54)
[2021-04-25 09:06] LABS: ANISOCYTOSIS 1+; BAND 2 % (0.0-2.0); Eosinophil 2 % (0.00-3.0); Lymphocytes 12 % (24-44); Monocyte 4 % (0.0-12.0); Neutrophils 80 % (36.-66.); Platelet Estimate DECREASED (NORMAL); Total Cells Counted 100
[2021-04-25] MEDS: ENOXAPARIN SODIUM SQ SCH (09:13)
[2021-04-25] MEDS: DECADRON 10MG INJ. IV SCH (09:13)
[2021-04-25] MEDS: LASIX 20 MG PO SCH (09:14)
[2021-04-25] MEDS: Zestril 20 MG PO SCH (09:14)
[2021-04-25] MEDS: OLUMIANT PO SCH (09:14)
[2021-04-25] MEDS: Lantus Insulin SQ SCH (09:46)
[2021-04-26] MEDS: Lantus Insulin SQ SCH (10:23)
[2021-04-26] MEDS: ENOXAPARIN SODIUM SQ SCH (10:24)
[2021-04-26] MEDS: DECADRON 10MG INJ. IV SCH (10:24)
[2021-04-26] MEDS: OLUMIANT PO SCH (10:24)
[2021-04-26] MEDS: Zestril 20 MG PO SCH (10:25)
[2021-04-26] MEDS: LASIX 20 MG PO SCH (10:25)
[2021-04-26] MEDS: Protonix 40MG Tablet PO SCH ×2 (11:21→22:47)
[2021-04-26] MEDS: Glucophage 500 MG PO SCH ×2 (11:21→16:37)
[2021-04-26] MEDS: Zocor 10MG PO SCH (11:21)
[2021-04-26] MEDS: Glucotrol 5 MG PO SCH (11:21)
[2021-04-26] MEDS: Megace 40 MG/ML PO SCH ×2 (11:31→22:47)
[2021-04-26] MEDS: CHLORHEXIDINE GLUCONATE MM SCH ×2 (11:32→22:46)
[2021-04-26] MEDS: COZAAR PO SCH ×2 (11:35)
[2021-04-26] MEDS: HYDRODIURIL PO SCH ×2 (11:35)
[2021-04-26] MEDS: HUMALOG SQ PRN ×3 (11:39→22:47)
[2021-04-26] MEDS ORDERED: NON-FORMULARY ITEM (Omeprazole [Omeprazole] 40 MG) PO SCH (22:00)
[2021-04-26] MEDS ORDERED: CHLORHEXIDINE MC SCH (22:00)
[2021-04-26] MEDS ORDERED: NON-FORMULARY ITEM (Megestrol Acetate 40 Mg*** 40 MG) PO SCH (22:00)
[2021-04-27] MEDS: Glucophage 500 MG PO SCH ×2 (08:08→16:50)
[2021-04-27] MEDS: HUMALOG SQ PRN ×3 (08:08→23:41)
[2021-04-27] MEDS ORDERED: NON-FORMULARY ITEM (Lovastatin [Lovastatin] 20 MG) PO SCH (10:00)
[2021-04-27] MEDS ORDERED: NON-FORMULARY ITEM (Losartan/Hydrochlorothiazide [Losartan-Hctz 100-12.5 Mg Tab] 1 EACH) PO SCH (10:00)
[2021-04-27] MEDS ORDERED: NON-FORMULARY ITEM (Glipizide [Glipizide] 10 MG) PO SCH (10:00)
[2021-04-27] MEDS: ENOXAPARIN SODIUM SQ SCH (10:48)
[2021-04-27] MEDS: Zocor 10MG PO SCH (10:48)
[2021-04-27] MEDS: LASIX 20 MG PO SCH (10:48)
[2021-04-27] MEDS: Protonix 40MG Tablet PO SCH ×2 (10:48→23:41)
[2021-04-27] MEDS: Zestril 20 MG PO SCH (10:48)
[2021-04-27] MEDS: DECADRON 10MG INJ. IV SCH (10:48)
[2021-04-27] MEDS: Megace 40 MG/ML PO SCH ×2 (10:49→23:41)
[2021-04-27] MEDS: CHLORHEXIDINE GLUCONATE MM SCH ×2 (10:49→23:40)
[2021-04-27] MEDS: Lantus Insulin SQ SCH (10:51)
[2021-04-27] MEDS: Glucotrol 5 MG PO SCH (10:57)
[2021-04-27] MEDS: OLUMIANT PO SCH (11:16)
[2021-04-27] MEDS: COZAAR PO SCH ×2 (11:28)
[2021-04-27] MEDS: HYDRODIURIL PO SCH ×2 (11:28)
[2021-04-27] MEDS: Senokot-S Tablet PO SCH (15:00)
[2021-04-28 07:36] LABS: Hematocrit 34.1 % (42-50); Hemoglobin 11.3 gm/dl (12.5-18.0); Mean Cell Volume 105.9 fl (78-100); Mean Corpuscular Hemoglobin 35.1 pg (26-32); Mean Corpuscular Hgb Concent. 33.1 g/dl (32-36); Mean Platelet Volume 11.4 fl (7.5-11.0); Platelet Count 119 K/mm3 (150-450); Red Blood Count 3.22 M/mm3 (4.1-5.6); Red Cell Distribution Width 14.4 % (11.5-14.0); White Blood Count 4.2 K/mm3 (4.0-10.5)
[2021-04-28] MEDS: Glucophage 500 MG PO SCH (08:08)
[2021-04-28] MEDS: Protonix 40MG Tablet PO SCH (08:09)
[2021-04-28] MEDS: OLUMIANT PO SCH (08:09)
[2021-04-28] MEDS: Zocor 10MG PO SCH (08:09)
[2021-04-28] MEDS: ENOXAPARIN SODIUM SQ SCH (08:10)
[2021-04-28] MEDS: DECADRON 10MG INJ. IV SCH (08:10)
[2021-04-28] MEDS: HYDRODIURIL PO SCH ×2 (08:10)
[2021-04-28] MEDS: Glucotrol 5 MG PO SCH (08:10)
[2021-04-28] MEDS: COZAAR PO SCH ×2 (08:10)
[2021-04-28] MEDS: Megace 40 MG/ML PO SCH (08:11)
[2021-04-28] MEDS: CHLORHEXIDINE GLUCONATE MM SCH (08:11)
[2021-04-28] MEDS: Lantus Insulin SQ SCH (08:11)
[2021-04-28] MEDS: LASIX 20 MG PO SCH (08:11)
[2021-04-28] MEDS: Zestril 20 MG PO SCH (08:11)
[2021-04-28] MEDS: Senokot-S Tablet PO SCH (08:12)
[2021-04-28 08:23] VITALS: BP 153/65; O2SAT 93
[2021-04-28 08:40] LABS: ALBUMIN 2.5 g/dL (3.5-5.0); ALKALINE PHOSPHATASE 196 U/L (38-126); ANION GAP 8.3 MEQ/L (5-15); BLOOD UREA NITROGEN 27 mg/dL (9-20); CHLORIDE 101 mmol/L (98-107); Calcium 8.7 mg/dL (8.4-10.2); Carbon Dioxide 28 mmol/L (22-30); Creatinine 1 0.75 mg/dL (0.66-1.25); EST GLOMERULAR FILTRATION RATE > 60.0 ML/MIN; Glucose 110 mg/dL (74-106); Potassium 3.5 mmol/L (3.5-5.1); SGOT/AST 79 U/L (17-59); SGPT/ALT 63 U/L (0-50); SODIUM 134 mmol/L (137-145); Total Protein 5.7 g/dL (6.3-8.2)
[2021-04-28 09:57] VITALS: PULSE 84
--- NOTE | 2021-04-28 11:30 | DS ---
ADMISSION DIAGNOSES: 1) COVID pneumonia. 2) Hepatic cancer. 3) Diabetes mellitus. DISCHARGE DIAGNOSES: 1) COVID PNEUMONIA. 2) HEPATIC CANCER. 3) DIABETES MELLITUS. HOSPITAL COURSE: The patient is from [place]. He drives a small truck. He became sick and was brought from a fast food restaurant to the emergency room where he was quite hypoxic. He kept saying he cannot have COVID because he had the shots which I am sure he did. However, he has liver cancer which we could see on the CT of his lungs and we got a note from his oncologist. He had received a round of treatment maybe a week or two ago. Advised him that unfortunately with liver cancer, chemotherapy makes him a little more sensitive to getting COVID. He was quite hypoxic for seven or eight days. He had been high flow for a couple of days. However over the last week, he has been on 2 liters and today I think he has been off oxygen. A very pleasant man who demands nothing. The aides have to talk him into letting them sit him up and help him walk which he can walk to the bathroom. Initially he was put on Vancomycin, piperacillin and I discontinued those because he had typical COVID pneumonia with a low white count and bilateral infiltrates on his chest x-ray. His insulin was increased with coverage due to the fact that he is on Decadron, Remdesivir, antibodies and he made slow steady improvement. His troponins were mildly elevated and they went down to normal. He had no acute changes on his EKG's. I do not feel he had myocarditis from COVID of any substantial level. Today his temperature 98F and has been for the last week, pulse 79, respirations 14. Oxygen on room air is 96%. D-dimer is still elevated a little bit 5600 certainly that could be from the cancer. He is anticoagulated with Lovenox. It might be a good idea to anticoagulate him with oral anticoagulant due to the cancer. I will probably add that to his home medications, ask him to see his oncologist in two weeks. PROGNOSIS: Good.
--- NOTE | 2021-05-23 13:19 | HP ---
CHIEF COMPLAINT: COVID pneumonia, coronary artery disease. 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 He could not get his breath and felt terrible. The ambulance was called and he was taken to the emergency room and admitted. He seemed confused. A little later on his language cleared, speaks and understands [place] well, been in the [place] and has been a [place] for the last 20 years. He was hypoxic and was treated with Decadron and Remdesivir. He was anticoagulated. On the , he was given some Lasix in desperation because he was getting worse and it seemed to help. He is very optimistic, smiling and very pleasant. He did not talk too much. We finally got a hold of his physician in [place] and it turns out that we had noticed he had a mass in his liver and he does have known hepatic carcinoma and I believe he had just received a treatment before he left to drive his truck about [address]. He has right lobe of liver mass 13 x 17 x 15 cm and additional mass in the retroperitoneal area right kidney, metastasis in the pelvis and the bladder and rectum. His alpha-fetoprotein was tremendously high. He was treated with atezolizumab and bevacizumab. It is felt he has hepatic carcinoma advanced stage with normal liver enzymes. He is a diabetic. His blood sugars held pretty good until we gave him Decadron and then we had to give him coverage. His doctor said that unresectable and that he should return for treatment when he got over the COVID, if he did. He had a long, slow stay progress and was discharged on 04/28/2021. PHYSICAL EXAMINATION: Initially he was confused, trying to talk with a [place] accent. CHEST: Few crackles. CVS: Heart sounds regular rate. No murmurs or gallops. ABDOMEN: Obese. No masses could be felt. EXTREMITIES: Thin legs. No edema. IMPRESSION: 1) COVID pneumonia. 2) Respiratory distress. 3) Hepatic carcinoma. PROGNOSIS: Considered to be fair.
== END 2021-04-28 11:59 | disposition home or self-care (01) | DRG 177 ==
LOC: ED 16:35 → UNDOADMIN 04-20 01:09 → MED SURG 04-20 01:09
PROVIDERS: ADMIT Family Medicine; ATTEND Family Medicine
DX: U07.1 COVID-19 (principal); J12.82 Pneumonia due to coronavirus disease 2019; C22.9 Malignant neoplasm of liver, not specified as primary or secondary; E87.1 Hypo-osmolality and hyponatremia; E11.65 Type 2 diabetes mellitus with hyperglycemia; R09.02 Hypoxemia; R79.1 Abnormal coagulation profile; Z20.822 Contact with and (suspected) exposure to COVID-19
CPT/HCPCS: 36000; 36415; 36600; 71045; 71260; 80048; 80053; 81001; 82375; 82803; 82947; 83036; 84484; 85025; 85027; 85379; 85610; 87040; 87086; 87400; 93005; 93041; 94760; 94762; 96365; 96374; 96375; 99285; J1100; J1650; J1815; J1817; J3480; U0003; A9270-GY; J3370